=== PATIENT | female | born 2005 | race Two or more races ===

== ENCOUNTER 2024-11-06 15:55 | Emergency (ER) | payer BC ==
[~2024-11-06] VITALS: Ht 154.9 cm; Wt 54.9 kg
[2024-11-06] MEDS ORDERED: CEPH-570 PO (16:24)
[2024-11-06 16:58] VITALS: BP 94/55; TEMP 98.1; O2SAT 99
== END 2024-11-06 16:59 | disposition home or self-care (01) ==
LOC: ER 16:04
DX: L03.115 Cellulitis of right lower limb (principal)